=== PATIENT | female | born 1970 | race Caucasian/White ===

== ENCOUNTER 2016-09-09 02:18 | Emergency (ER) | payer MEDICAID ==
[~2016-09-09] VITALS: Ht 157.5 cm; Wt 63.5 kg
[2016-09-09 02:24] VITALS: BP 123/72
== END 2016-09-09 08:53 | disposition left against medical advice (07) ==
LOC: ER 06:07
DX: R10.9 Unspecified abdominal pain (principal); Z53.21 Procedure and treatment not carried out due to patient leaving prior to being seen by health care provider

== ENCOUNTER 2021-10-03 01:03 | Emergency (ER) | payer MEDICAID ==
[~2021-10-03] VITALS: Ht 165.1 cm; Wt 61.3 kg
[2021-10-03] MEDS ORDERED: ACETAMINOPHEN WITH CODEINE 300/30MG TABLET PO ONE (01:30)
[2021-10-03 01:38] VITALS: BP 144/93
[2021-10-03 01:45] LABS: BASOPHILS % 0.7 % (0.0-2.0); EOSINOPHILS % 1.9 % (0.0-5.0); HEMATOCRIT. 38.4 % (36.0-48.0); HEMOGLOBIN. 13.3 g/dL (12.0-16.0); MEAN CORPUSCULAR HEMOGLOBIN 31.3 pg (28.0-32.0); MEAN CORPUSCULAR VOLUME 90.5 fL (81.0-99.0); MEAN PLATELET VOLUME 9.1 fl (7.4-10.4); MONOCYTES % 9.4 % (2.0-8.0); PLATELET 182 x1000/uL (130-400); RED BLOOD CELL COUNT 4.25 mill/uL (4.2-5.4); RED CELL DISTRIBUTION WIDTH 12.2 % (11.6-14.6)
[2021-10-03 01:51] LABS: CHLORIDE 110 mEq/L (98-107)
[2021-10-03] MEDS ORDERED: NAP5EC MT (02:29)
[2021-10-03] MEDS ORDERED: CYCL10TA7 MT (02:29)
== END 2021-10-03 02:47 | disposition home or self-care (01) ==
LOC: ER 01:03 → EDBD 01:03 → ER 02:47
DX: M79.604 Pain in right leg (principal); Z98.890 Other specified postprocedural states
CPT/HCPCS: 36415; 80048; 85025; 93971; 99284

== ENCOUNTER 2024-08-17 17:02 | Emergency (ER) | payer MEDICAID ==
[~2024-08-17] VITALS: Ht 157.5 cm; Wt 67.0 kg
[~2024-08-17 17:02] MED LIST: CYCL10TA21 MT; NAPR-1495 MT
[2024-08-17 17:07] VITALS: O2SAT 99
[2024-08-17 17:13] VITALS: BP 113/64; PULSE 66; RESP 18; TEMP 36.7; O2SAT 98
[2024-08-17] MEDS ORDERED: HYDR30OI12 TP (18:16)
[2024-08-17] MEDS ORDERED: DIPH103G TP (18:16)
== END 2024-08-17 18:24 | disposition home or self-care (01) ==
LOC: ER 17:02
DX: R21 Rash and other nonspecific skin eruption (principal); Z79.899 Other long term (current) drug therapy; Z79.1 Long term (current) use of non-steroidal anti-inflammatories (NSAID); Z98.890 Other specified postprocedural states
CPT/HCPCS: 99282

== ENCOUNTER 2024-08-24 09:10 | Emergency (ER) | payer MEDICAID ==
[~2024-08-24] VITALS: Ht 160 cm; Wt 66.0 kg
[~2024-08-24 09:10] MED LIST changes: +DIPH103G TP; +HYDR30OI12 TP
[2024-08-24 09:15] VITALS: O2SAT 98
[2024-08-24 09:19] VITALS: BP 119/60; PULSE 64; RESP 12; TEMP 36.6; O2SAT 99
[2024-08-24] MEDS ORDERED: VALA100044 MT (11:41)
[2024-08-24] MEDS ORDERED: IBUP-2029 MT (11:41)
== END 2024-08-24 11:51 | disposition home or self-care (01) ==
LOC: ER 09:10
DX: R21 Rash and other nonspecific skin eruption (principal); R05.9 Cough, unspecified; Z79.1 Long term (current) use of non-steroidal anti-inflammatories (NSAID); Z79.624 Long term (current) use of inhibitors of nucleotide synthesis; Z98.890 Other specified postprocedural states
CPT/HCPCS: 71045; 99283